=== PATIENT | male | born 1990 | race Caucasian/White ===

== ENCOUNTER 2018-04-10 04:24 | Emergency (ER) | payer SELFPAY ==
[~2018-04-10] VITALS: Ht 167.6 cm; Wt 78.5 kg
[2018-04-10 04:27] VITALS: BP 140/86
[2018-04-10 04:40] VITALS: BP 140/86
== END 2018-04-10 04:40 ==
LOC: MED 04:24
DX: Z02.89 Encounter for other administrative examinations (principal); Z98.890 Other specified postprocedural states; V89.2XXA Person injured in unspecified motor-vehicle accident, traffic, initial encounter; Y93.89 Activity, other specified; Y92.89 Other specified places as the place of occurrence of the external cause; Y99.8 Other external cause status
CPT/HCPCS: 99283